=== PATIENT | male | born 1945 | race Caucasian/White ===

== ENCOUNTER 2020-12-31 07:05 | Day surgery (SDC) | payer MEDICARE, OTHER ==
[~2020-12-31] VITALS: Ht 175.3 cm; Wt 81.6 kg
[~2020-12-31 07:05] MED LIST: ALPHA LIPOIC A200 MG PO; ASPIRIN LOW DOS81 M1 PO; B COMPLE2 PO; B-12250 MCG OR; BACTRIM DS1 TAB PO; CIPRO500 MG PO; D31000 UNIT OR; FISH OIL1200 M1 PO; GABAPENTIN300 MG PO; Q-SORB CO Q-10200 MG PO; RAPAFLO8 MG OR; SUPER BETA PROSTATE PO; ULTRAM50 M1 PO; VITAMIN C500 M1 PO; VITAMIN D31000 UNI1 PO
[2020-12-31 09:02] VITALS: BP 147/80
== END 2020-12-31 09:30 | disposition home or self-care (01) ==
LOC: ENDO 07:05 → ORM 08:00 → ENDO 09:30 → ORM 10:30
PROVIDERS: ATTEND Surgery
PROC: 0DBH8ZX Excision of Cecum, Via Natural or Artificial Opening Endoscopic, Diagnostic (ICD-10-PCS; principal; 2020-12-31)
PROC: 0DBL8ZX Excision of Transverse Colon, Via Natural or Artificial Opening Endoscopic, Diagnostic (ICD-10-PCS; 2020-12-31)
DX: Z12.11 Encounter for screening for malignant neoplasm of colon (principal); D12.0 Benign neoplasm of cecum; D12.3 Benign neoplasm of transverse colon; K57.30 Diverticulosis of large intestine without perforation or abscess without bleeding; K64.8 Other hemorrhoids; Q43.9 Congenital malformation of intestine, unspecified; G62.9 Polyneuropathy, unspecified; Z86.010 Personal history of colon polyps

== ENCOUNTER 2022-04-26 15:41 | Inpatient (IN) | payer MEDICARE, OTHER ==
[~2022-04-26] VITALS: Ht 175.3 cm; Wt 80.0 kg
--- NOTE | 2022-04-26 16:19 | NUR ---
PT IN BED WITH FAMILY AT BEDSIDE. IV ACCESS OBTAINED IN FIRST ATTEMPT BY THIS GEOGRAPHY DEPARTMENT CHAIR. LABS SENT. BLOOD CULTURES X 2 OBTAINED. ME AWARE AND INFORMED OF PT CONDIION. WILL CONTINUE TO MONITOR.
[2022-04-26 16:38] LABS: HEMATOCRIT 48.4 % (39.0-50.0); HEMOGLOBIN 16.5 g/dl (14.0-18.0); IMMATURE GRANULOCYTES 0.3 % (0.0-5.0); MEAN CELL VOLUME 95.5 fL CALC (80.0-100.0); MEAN CORPUSCULAR HGB 32.5 pG CALC (26.0-32.0); MEAN CORPUSCULAR HGB CONC 34.1 g/dL CAL (32.0-36.0); NEUT# 8.49 thou/uL (1.82-7.42); RED BLOOD COUNT 5.07 mill/uL (4.70-6.10); RED CELL DISTRI WIDTH 11.5 % (11.5-15.5)
[2022-04-26 16:48] LABS: ANION GAP 14 (6-22 (CALC)); BUN 8 mg/dL (8-23); BUN/CREATININE RATIO 12 (12-20 (CALC)); CARBON DIOXIDE 29 mmol/l (22-30); CHLORIDE 94 mmol/l (95-108); CREATININE 0.7 mg/dL (0.7-1.3); GFR FOR AFR.AMER. > 60 ML/MIN (>=60 (CALC)); GFR OTHER RACES > 60 ML/MIN (>=60 (CALC)); POTASSIUM 4.2 mmol/l (3.5-5.1); SGOT/AST 40 u/l (19-48); SODIUM 134 mmol/l (137-146); TOTAL PROTEIN 8.7 g/dL (6.3-8.2)
[2022-04-26 16:51] LABS: ALKALINE PHOSPHATASE 112 u/l (38-126); BILIRUBIN, TOTAL 0.4 mg/dL (0.0-1.4)
--- NOTE | 2022-04-26 19:50 | NUR ---
Report received from LEAD PERSON.
--- NOTE | 2022-04-26 19:50 | NUR ---
PT ADMITTED TO RM [id number], REPORT GIVEN TO JOSSELIN HUNTER. PT RESTING COMFORTABLY, NO COMPLAINTS AT THIS TIME; VSS, NAD.
[2022-04-26 20:30] VITALS: BP 163/85
--- NOTE | 2022-04-26 20:40 | NUR ---
77 y/o male patient received from ED with Dx: Cellulitis BLE. O/A to unit, pat awake, alert and cooperative. BLE swollen, red with multiple blebs and bullae and open blisters. Same weeping moderate amount serosanguinous drainage. Pt noted to have several other healed lesions over thighs and buttocks and hips. Sacrum with stage 2 pressure injuries surrounded by areas of redness. Order noted for air mattress. Charge nurse made aware. Will follow up. Pt oriented to room, environment and call system. Plan of care reviewed. Call thompson placed within reach. Will monitor.
[2022-04-26 20:43] VITALS: BP 114/73
[2022-04-26 20:46] VITALS: BP 163/85
[2022-04-26 21:14] LABS: ALBUMIN 4.1 g/dL (3.2-5.0); BILIRUBIN, TOTAL 0.4 mg/dL (0.0-1.4); TOTAL PROTEIN 8.7 g/dL (6.3-8.2)
--- NOTE | 2022-04-26 23:10 | NUR ---
Pt with c/opain to RLE. Medicated with tramadol 50mgs oi. Will reassess.
[2022-04-27 00:14] VITALS: BP 125/66
[2022-04-27 04:21] VITALS: BP 114/59
[2022-04-27 05:40] LABS: IMMATURE GRANULOCYTES 0.4 % (0.0-5.0); MEAN CELL VOLUME 96.6 fL CALC (80.0-100.0); MEAN CORPUSCULAR HGB 32.9 pG CALC (26.0-32.0); MEAN CORPUSCULAR HGB CONC 34.1 g/dL CAL (32.0-36.0); NEUT# 3.21 thou/uL (1.82-7.42); RED BLOOD COUNT 3.83 mill/uL (4.70-6.10); RED CELL DISTRI WIDTH 11.6 % (11.5-15.5)
[2022-04-27 05:57] LABS: HEMOGLOBIN 12.6 g/dl (14.0-18.0)
--- NOTE | 2022-04-27 06:03 | NUR ---
Pt appears to be resting. Resps even and unlaboured. No noted complaints at this time.
[2022-04-27 06:21] LABS: BUN 5 mg/dL (8-23); BUN/CREATININE RATIO 10 (12-20 (CALC)); CARBON DIOXIDE 24 mmol/l (22-30); CREATININE 0.5 mg/dL (0.7-1.3); GFR FOR AFR.AMER. > 60 ML/MIN (>=60 (CALC)); GFR OTHER RACES > 60 ML/MIN (>=60 (CALC)); MAGNESIUM 2.2 mg/dL (1.6-2.3); POTASSIUM 3.4 mmol/l (3.5-5.1); SODIUM 138 mmol/l (137-146)
[2022-04-27 06:27] LABS: ANION GAP 10 (6-22 (CALC)); CHLORIDE 107 mmol/l (95-108)
[2022-04-27 07:02] VITALS: BP 107/57
--- NOTE | 2022-04-27 11:15 | NUR ---
[facility] SOUND TECH CALLED TO INFORM US THAT THEY ARE UNABLE TO PERFORM THE ULTRA SOUND THAT DR DREW ORDERED. DR DREW INFORMED AND STATED THAT THIS IS A NON-EMERGENT SITUATION, THAT PATIENT CAN DO OUTPATIENT SETTINGS. FORMING ACID DUMPER INFORMED AND SCRIPT WILL BE GIVEN UPON DISCHARGE.
[2022-04-27 12:13] VITALS: BP 117/64
[2022-04-27 16:54] VITALS: BP 119/62
[2022-04-27 19:00] VITALS: BP 109/51
--- NOTE | 2022-04-27 19:00 | NUR ---
Report received from AM RN. Pt appears to be asleep. Resps even and unlaboured. In no apparent distress. Will monitor.
[2022-04-28] VITALS (10 sets, daily range): BP systolic 117–149; BP diastolic 65–86
--- NOTE | 2022-04-28 06:22 | NUR ---
Pt awake, alert. No noted complaints.Safety precautions maintained.
[2022-04-28 08:22] LABS: BUN 4 mg/dL (8-23); BUN/CREATININE RATIO 5 (12-20 (CALC)); CARBON DIOXIDE 23 mmol/l (22-30); CHLORIDE 109 mmol/l (95-108); CREATININE 0.7 mg/dL (0.7-1.3); GFR FOR AFR.AMER. > 60 ML/MIN (>=60 (CALC)); GFR OTHER RACES > 60 ML/MIN (>=60 (CALC)); MAGNESIUM 2.3 mg/dL (1.6-2.3); SODIUM 139 mmol/l (137-146)
[2022-04-28 08:23] LABS: ANION GAP 12 (6-22 (CALC)); POTASSIUM 4.5 mmol/l (3.5-5.1)
--- NOTE | 2022-04-28 10:37 | NUR ---
S: PAU NIELSON is a 77 M who presents with cellulitis of right foot and sepsis. He has a history of neuropahy, osteoarthritis, colon polyp. All medications in patient's chart were reviewed. O: VS: BP 117/64 mmHg, P 63bpm, RR 18bpm,T 97.9f W 80Kg, HT 175.26cm, Scr= 1.0 ,CrCl= 70.0ml/min Vancomicyn trough level on 04/28/22 @ 0755: 13 A: Blood culture show no growth. Wound culture is pending. Vancomycin trough level is low compare to the therapeutic range. P: Patient is on Zosyn 3.375gm IV Q6H. Vancomycin ordered for pharmacy to dose. Continue Vancomycin 1gm IV Q12H. Vancomycin trough is drawn before dose on 04/29/2022 @ 1999. Vancomycin goal trough is between 15-20 mcg/ml. Pharmacy will follow and or advise on antibiotics use as needed.
--- NOTE | 2022-04-28 17:35 | NUR ---
CALLED [facility] REGARDING PLACEMENT OF AIR MATTRESS ON THIS PT. SPOKE TO JOSEPHINE WAS GIVEN CONFIRMATION NUMBER [id number].
--- NOTE | 2022-04-28 19:15 | NUR ---
Shift report done. Pt received in bed. Awake, alert. No apparent distress. No noted complaints. Safety precautions in place.
--- NOTE | 2022-04-29 03:09 | NUR ---
Pt appears to be asleep at intervals. No noted complaints. Resps even and unlaboured. Safety precautions in place.
[2022-04-29 04:21] VITALS: BP 134/67
[2022-04-29 06:22] LABS: ANION GAP 12 (6-22 (CALC)); BUN 4 mg/dL (8-23); BUN/CREATININE RATIO 6 (12-20 (CALC)); CARBON DIOXIDE 24 mmol/l (22-30); CHLORIDE 110 mmol/l (95-108); CREATININE 0.6 mg/dL (0.7-1.3); GFR FOR AFR.AMER. > 60 ML/MIN (>=60 (CALC)); GFR OTHER RACES > 60 ML/MIN (>=60 (CALC)); POTASSIUM 4.1 mmol/l (3.5-5.1); SODIUM 141 mmol/l (137-146)
[2022-04-29 06:36] VITALS: BP 130/71
[2022-04-29 11:27] VITALS: BP 130/75
[2022-04-29 16:30] VITALS: BP 160/86
[2022-04-29 18:53] VITALS: BP 145/79
[2022-04-30 00:14] VITALS: BP 145/78
[2022-04-30 03:58] VITALS: BP 126/69
[2022-04-30 06:14] VITALS: BP 136/76
[2022-04-30 14:30] VITALS: BP 133/76
[2022-04-30 19:08] VITALS: BP 121/75
[2022-05-01 00:08] VITALS: BP 126/68
[2022-05-01 04:36] VITALS: BP 128/67
[2022-05-01 06:42] VITALS: BP 135/68
[2022-05-01 06:53] LABS: HEMOGLOBIN 14.3 g/dl (14.0-18.0); IMMATURE GRANULOCYTES 0.3 % (0.0-5.0); MEAN CELL VOLUME 97.7 fL CALC (80.0-100.0); MEAN CORPUSCULAR HGB 32.3 pG CALC (26.0-32.0); NEUT# 4.4 thou/uL (1.82-7.42); RED BLOOD COUNT 4.43 mill/uL (4.70-6.10); RED CELL DISTRI WIDTH 11.8 % (11.5-15.5)
[2022-05-01 06:54] LABS: HEMATOCRIT 43.3 % (39.0-50.0)
[2022-05-01 06:59] LABS: ANION GAP 10 (6-22 (CALC)); BUN 7 mg/dL (8-23); BUN/CREATININE RATIO 9 (12-20 (CALC)); CHLORIDE 104 mmol/l (95-108); CREATININE 0.7 mg/dL (0.7-1.3); GFR FOR AFR.AMER. > 60 ML/MIN (>=60 (CALC)); GFR OTHER RACES > 60 ML/MIN (>=60 (CALC)); MAGNESIUM 2.3 mg/dL (1.6-2.3); SODIUM 139 mmol/l (137-146)
[2022-05-01 07:06] LABS: CARBON DIOXIDE 29 mmol/l (22-30)
[2022-05-01 15:14] VITALS: BP 120/79
[2022-05-01 20:00] VITALS: BP 110/63
[2022-05-02 00:20] VITALS: BP 107/67
[2022-05-02 03:23] VITALS: BP 113/80
[2022-05-02 05:41] LABS: HEMATOCRIT 43.9 % (39.0-50.0); HEMOGLOBIN 14.2 g/dl (14.0-18.0); IMMATURE GRANULOCYTES 0.3 % (0.0-5.0); MEAN CELL VOLUME 100.9 fL CALC (80.0-100.0); MEAN CORPUSCULAR HGB 32.6 pG CALC (26.0-32.0); MEAN CORPUSCULAR HGB CONC 32.3 g/dL CAL (32.0-36.0); NEUT# 4.11 thou/uL (1.82-7.42); RED BLOOD COUNT 4.35 mill/uL (4.70-6.10); RED CELL DISTRI WIDTH 11.9 % (11.5-15.5)
[2022-05-02 05:56] LABS: ANION GAP 12 (6-22 (CALC)); BUN 8 mg/dL (8-23); BUN/CREATININE RATIO 13 (12-20 (CALC)); CARBON DIOXIDE 26 mmol/l (22-30); CHLORIDE 105 mmol/l (95-108); CREATININE 0.7 mg/dL (0.7-1.3); GFR FOR AFR.AMER. > 60 ML/MIN (>=60 (CALC)); GFR OTHER RACES > 60 ML/MIN (>=60 (CALC)); MAGNESIUM 2.1 mg/dL (1.6-2.3); POTASSIUM 4.3 mmol/l (3.5-5.1); SODIUM 139 mmol/l (137-146)
[2022-05-02 06:24] VITALS: BP 135/76
[2022-05-02 10:01] VITALS: BP 114/61
[2022-05-02] MEDS ORDERED: LEVAQUIN750 M1 PO (10:40)
--- NOTE | 2022-05-02 13:25 | NUR ---
Attempted treatment, family in and nursing preparing pt for d/c.
--- NOTE | 2022-05-02 18:39 | NUR ---
CALLED [facility] REGARDING PICK OF AIR MATTRESS SPOKE TO MARCO ANTONIO WAS GIVEN CONFIRMATION NUMBER [id number].
== END 2022-05-02 13:50 | DRG 872 ==
LOC: ED 15:41 → ED-I 17:07 → ED 18:01 → MS2 18:02
PROVIDERS: Emergency Medicine; Internal Medicine; Nurse Practitioner; ADMIT Internal Medicine; ATTEND Internal Medicine
PROC: 0HBMXZZ Excision of Right Foot Skin, External Approach (ICD-10-PCS; principal; 2022-04-27)
DX: A41.9 Sepsis, unspecified organism (principal); L03.115 Cellulitis of right lower limb; E87.20 Acidosis, unspecified; R65.20 Severe sepsis without septic shock; R23.8 Other skin changes; G62.1 Alcoholic polyneuropathy; F10.20 Alcohol dependence, uncomplicated; L89.312 Pressure ulcer of right buttock, stage 2; S80.812A Abrasion, left lower leg, initial encounter; S80.811A Abrasion, right lower leg, initial encounter; F17.220 Nicotine dependence, chewing tobacco, uncomplicated; E87.6 Hypokalemia; B95.1 Streptococcus, group B, as the cause of diseases classified elsewhere; X58.XXXA Exposure to other specified factors, initial encounter; Y90.0 Blood alcohol level of less than 20 mg/100 ml; Z20.822 Contact with and (suspected) exposure to COVID-19
CPT/HCPCS: J1650; Q3014

== ENCOUNTER 2022-12-05 12:06 | Emergency (ER) | payer MEDICARE, OTHER ==
[~2022-12-05] VITALS: Ht 175.3 cm; Wt 79.0 kg
[~2022-12-05 12:06] MED LIST changes: +LEVAQUIN750 M1 PO
[2022-12-05 13:08] VITALS: BP 150/62
[2022-12-05] MEDS ORDERED: PERMETHRIN5 % EX (13:27)
[2022-12-05] MEDS ORDERED: ALL DAY10 MG PO (13:27)
[2022-12-05] MEDS ORDERED: OMNI-PAC300 MG PO (13:27)
[2022-12-05 13:46] VITALS: BP 150/62
== END 2022-12-05 13:59 | disposition home or self-care (01) ==
LOC: ED 12:06
DX: T78.40XA Allergy, unspecified, initial encounter (principal); L89.151 Pressure ulcer of sacral region, stage 1; G62.9 Polyneuropathy, unspecified; X58.XXXA Exposure to other specified factors, initial encounter

== ENCOUNTER 2024-01-24 11:25 | Inpatient (IN) | payer MEDICARE, OTHER ==
[2024-01-24] VITALS (21 sets, daily range): BP systolic 112–158; BP diastolic 60–100
[~2024-01-24] VITALS: Ht 175.3 cm; Wt 74.5 kg
[~2024-01-24 11:25] MED LIST changes: +ALL DAY10 MG PO; +OMNI-PAC300 MG PO; +PERMETHRIN5 % EX; -ULTRAM50 M1 PO; +ULTRAM50 MG PO
--- NOTE | 2024-01-24 12:40 | NUR ---
PT BROUGHT BACK TO ER ROOM 9 VIA WHEELCHAIR, PTS SPOUSE AT SIDE
[2024-01-24] MEDS ORDERED: SODIUM CHLORIDE 0.9% 1,000 ML IV ONE ×2 (13:35→19:40)
[2024-01-24 13:38] LABS: BASO% 0.1 % (0-3); EOS% 0.1 % (0-8); HEMATOCRIT 44.9 % (39.0-50.0); HEMOGLOBIN 14.7 g/dl (14.0-18.0); IMMATURE GRANULOCYTES 0.1 % (0.0-5.0); LYMPH% 5.4 % (15-41); MEAN CELL VOLUME 100.2 fL CALC (80.0-100.0); MEAN CORPUSCULAR HGB 32.8 pG CALC (26.0-32.0); MEAN CORPUSCULAR HGB CONC 32.7 g/dL CAL (32.0-36.0); MONO% 7.8 % (2-13); NEUT# 12.68 thou/uL (1.82-7.42); NEUT% 86.5 % (42-76); RED BLOOD COUNT 4.48 mill/uL (4.70-6.10); RED CELL DISTRI WIDTH 11.7 % (11.5-15.5)
[2024-01-24 13:39] LABS: ALBUMIN 3.7 g/dL (3.2-5.0); BILIRUBIN, TOTAL 1.3 mg/dL (0.2-1.3); CREATININE 0.7 mg/dL (0.7-1.3); POTASSIUM 4.2 mmol/l (3.5-5.1); TOTAL PROTEIN 8.1 g/dL (6.3-8.2)
[2024-01-24 15:37] LABS: URINE BILIRUBIN - DIPSTICK Negative (NEGATIVE); URINE BLOOD DIPSTICK Trace-intact (NEGATIVE); URINE GLUCOSE - DIPSTICK Negative (NEGATIVE); URINE KETONE Negative (NEGATIVE); URINE PH 5.5 (4.5-8.0); URINE PROTEIN - DIPSTICK Trace mg/dL (NEG-TRACE); URINE SPECIFIC GRAVITY 1.015; URINE UROBILINOGEN - DIPSTICK 0.2 E.U./dL (0.2)
[2024-01-24 15:42] LABS: URINE COLOR Yellow; URINE LEUK ESTERASE Large (NEGATIVE); URINE NITRITE - DIPSTICK Positive (Negative)
[2024-01-24 15:54] LABS: URINE BACTERIA MANY hpf; URINE WBC 50-100 WBC/hpf (0-5)
[2024-01-24] MEDS ORDERED: VANCOMYCIN HCL 1 GM in SODIUM CHLORIDE 0.9% 250 ML IV ONE (17:20)
--- NOTE | 2024-01-24 19:00 | NUR ---
REPORT RECIEVED FROM JOSSELIN GUILLORY AT THIS TIME, PT ABX RUNNING AT THIS TIME, WARM BLANKET PROVIDED PER REQUEST, RADIOLOGY NOTIFIED OF CONTINUED WAIT TIME FOR CT SCAN, PT/FAMILY UPDATED ON WAIT TIMES, VOICES UNDERSTANDING WITH NO FURTHER QUESTIONS OR CONCERNS AT THIS TIME.
--- NOTE | 2024-01-24 19:24 | NUR ---
PT UPDATED ON CONTINUED WAIT TIME, AWAITING FOR CT RESULTS AND ALL FURTHER ORDERS. PT ABX RUNNING. PT VERBALIZES UNDERSTANDING WITH NO FURTHER QUESTIONS/CONCERNS. WARM BLANKET APPLIED TO PT, VSS, NAD NOTED, CALL LIGHT WITHIN REACH. PT VERBALIZES NO FURTHER NEEDS AT THIS TIME.
[2024-01-24] MEDS ORDERED: PIPERACILLIN Sodium-Tazobactam 3.375 GM in SODIUM CHLORIDE 0.9% 100 ML IV ONE (19:40)
--- NOTE | 2024-01-24 19:40 | NUR ---
PT NOTED WITH 400 ML OF DARK CLOUDY VONDA URINE AT THIS TIME, URINE PRESENTS WITH SEVERE FOUL ODOR AT THIS TIME, PT UPDATED ON CONTINUOUS POC AT THIS TIME AND PLAN FOR ADMISSION, PT VERBALIZES UNABLE TO RECALL MED LIST AT THIS TIME, CONSULT APPLIED, AWAITING ALL FURTHER RESUKTS/ORDERS.
[2024-01-24] MEDS ORDERED: MAGNESIUM HYDROXIDE 30 ML UDC PO PRN (19:45)
[2024-01-24] MEDS ORDERED: SODIUM CHLORIDE 0.9% 1,000 ML IV PRN (19:45)
[2024-01-24] MEDS ORDERED: ACETAMINOPHEN 325 MG/TAB PO PRN (19:45)
--- NOTE | 2024-01-24 20:48 | NUR ---
CALLED AND GAVE REPORT TO TAYO SHRESTHA AT THIS TIME.
[2024-01-24] MEDS ORDERED: ENOXAPARIN SODIUM 40 MG/0.4 ML SYR SC SCH (21:00)
--- NOTE | 2024-01-24 21:45 | NUR ---
PT TRANSPORTED TO [facility] BY ADDITIONAL STAFF AT THIS TIME, PT VOICES APPRECIATION OF CARE AT THIS TIME, NAD NOTED, VSS.
[2024-01-24] MEDS ORDERED: LORazepam 2 MG/ML IV PRN (22:15)
[2024-01-24] MEDS ORDERED: MULTIPLE VITAMIN 10 ML,THIAMINE HCL 100 MG in DEXTROSE 5% / 0.9% NACL 1,000 ML IV ONE (22:15)
[2024-01-24] MEDS ORDERED: chlordiazePOXIDE HCL 25 MG CAP PO PRN (22:15)
[2024-01-24] MEDS ORDERED: MORPHINE SULFATE 4 MG/ML VIAL IV PRN (22:20)
--- NOTE | 2024-01-24 23:13 | NUR ---
COVID SWAB OBTAINED, SENT TO LAB, RYLAN INSTRUCTED NPO AFTER MIDNIGHT.
--- NOTE | 2024-01-24 23:46 | NUR ---
RECEIVED REPORT FROM ED NURSE RYLAN CHACON TRANSPORTED VIA BED, PATIENT STATED NON AMBULATORY AND USES BUGGY AT HOME FOR TRANSFER, PATIENT ARRIVED MS UNIT AT 2156, ALERT ORIENTED ADMISSION ASSESSMENT COMPLETED, PATIENT EDUCATED ON DIET NPO AFTER MIDNIGHT, PATIENT PLACED ON PUREWICK, PATIENT ORIENTED TO ROOM AND CALL LIGHT SYSTEM.
[2024-01-25] VITALS (10 sets, daily range): BP systolic 103–131; BP diastolic 49–71
[2024-01-25] MEDS ORDERED: PIPERACILLIN Sodium-Tazobactam 3.375 GM in SODIUM CHLORIDE 0.9% 100 ML IV SCH
[2024-01-25] MEDS ORDERED: VANCOMYCIN HCL 1 GM/VIAL IV ONE ×2 (04:19→04:22)
--- NOTE | 2024-01-25 04:57 | NUR ---
PATIENT RESTING IN BED, PUEWICK IN PLACED DRAINED 350CC VONDA COLORED URINE. PATIENT NOT IN DISTRESS, REMAINS ON NPO, BED ALARM IN PLACED.
[2024-01-25] MEDS ORDERED: VANCOMYCIN HCL 1 GM in SODIUM CHLORIDE 0.9% 250 ML IV SCH (05:00)
[2024-01-25 05:54] LABS: BASO% 0.2 % (0-3); EOS% 1.2 % (0-8); HEMATOCRIT 40.1 % (39.0-50.0); HEMOGLOBIN 13.3 g/dl (14.0-18.0); IMMATURE GRANULOCYTES 0.3 % (0.0-5.0); LYMPH% 8.6 % (15-41); MEAN CELL VOLUME 100.8 fL CALC (80.0-100.0); MEAN CORPUSCULAR HGB 33.4 pG CALC (26.0-32.0); MEAN CORPUSCULAR HGB CONC 33.2 g/dL CAL (32.0-36.0); MONO% 9.7 % (2-13); NEUT# 7.9 thou/uL (1.82-7.42); RED BLOOD COUNT 3.98 mill/uL (4.70-6.10); RED CELL DISTRI WIDTH 11.9 % (11.5-15.5)
[2024-01-25 06:05] LABS: BILIRUBIN, TOTAL 0.8 mg/dL (0.2-1.3); CREATININE 0.6 mg/dL (0.7-1.3); MAGNESIUM 1.9 mg/dL (1.6-2.3); POTASSIUM 3.9 mmol/l (3.5-5.1); TOTAL PROTEIN 6.5 g/dL (6.3-8.2)
[2024-01-25 06:07] LABS: ALBUMIN 2.7 g/dL (3.2-5.0)
--- NOTE | 2024-01-25 07:42 | NUR ---
PATEINT A/O X3; ROOM AIR; BREATHING UNLABORED AND EVEN; DENIED ANY PAIN; DENIED ANY N/D/V AT THIS TIME; DENIED NEEDING ANYTHING; PATIENT AWARE OF NPO STATUS; IV SITE CLEAN AND INTACT RUNNING WITH NS@100; CALL LIGHT WITHIN REACH,VERABLIZED UNDERSTANDING ON HOW TO USE, PERSONAL ITEMS WITHIN REACH, BED IN LOWEST POSTION
[2024-01-25] MEDS ORDERED: MULTIPLE VITAMIN 10 ML,THIAMINE HCL 100 MG in DEXTROSE 5% / 0.9% NACL 1,000 ML IV SCH (08:00)
[2024-01-25] MEDS ORDERED: TAMSULOSIN HCL 0.4 MG CAP PO SCH (08:00)
[2024-01-25] MEDS ORDERED: SODIUM CHLORIDE 20 ML/VIAL SDV ONE (08:21)
[2024-01-25] MEDS ORDERED: SODIUM CHLORIDE 1,000 ML BTL IR ONE (08:24)
[2024-01-25] MEDS ORDERED: BUPIVACAINE 133 MG/10 ML VIAL IJ ONE (08:24)
[2024-01-25] MEDS ORDERED: STERILE WATER FOR IRRIGATION 1,000 ML BTL IR ONE (08:24)
--- NOTE | 2024-01-25 08:40 | NUR ---
PATIENT WENT TO OR
[2024-01-25] MEDS ORDERED: LACTATED RINGER'S 1,000 ML IV ONE (08:42)
[2024-01-25] MEDS ORDERED: FAMOTIDINE 10MG/ML 2ML SDV IV ONE (08:48)
--- NOTE | 2024-01-25 09:32 | NUR ---
S: PAU NIELSON is a 78 M who presents with perirectal abscess and UTI. He has a history of neuropathy, OA, colonic polyp, and alcohol abuse. All medications in patient's chart were reviewed. O: VS: BP 140/70, P 73, RR 14, T 98.3 W 74.5 kg, HT 69 in, Scr=0.6, CrCl= 64.2 ml/min A: Blood culture is pending. Urine culture is pending. P: Patient is on Zosyn 3.375 g IV q6h. Vancomycin ordered for pharmacy to dose. Start Vancomycin 750 mg IV Q12H. Vancomycin trough is drawn before the 4th dose on 01/25@0730. Vancomycin goal trough is between 10-15 mcg/ml. Pharmacy will follow and or advise on antibiotics use as needed.
[2024-01-25] MEDS ORDERED: HYDROmorphone HCL 2 MG/AMP IV PRN (09:45)
[2024-01-25] MEDS ORDERED: oxyCODONE 5MG/ ACETAMINOPHEN 325MG TAB PO PRN (09:45)
[2024-01-25] MEDS ORDERED: SODIUM CHLORIDE 0.9% 1,000 ML IV ONE (09:53)
--- NOTE | 2024-01-25 10:28 | NUR ---
PATIENT ARRIVED FROM O; VITAL STABLE; AWAITING NEW ORDERS; SCD ON LEGS; ROOM AIR; BREATHING UNLABORED AND EVEN; DENIED ANY PAIN; NEW PICTURE TOOK AT [facility]; Q2 TURN TO PREVENT BED SORES; NEW PICTURES TOKEN OF BUTTCOCKS; I/S NEXT TO BED; IV SITE IN [facility] CLEAN AND INATCT RUNING WITH NS @100; CALL LIGHT WITHIN REACH,VERBALIZED UNDERSTANDING ON HOW TO USE, PERSONAL ITEMS WITHIN REACH, BED IN LOWEST POSTION
[2024-01-25] MEDS ORDERED: LIDOCAINE HCL 2% 2ML SDV IV ONE (10:29)
[2024-01-25] MEDS ORDERED: SUCCINYLCHOLINE CHLORIDE 20 MG/ML 10ML VIAL IV ONE (10:29)
[2024-01-25] MEDS ORDERED: ePHEDrine SULFATE 50 MG/ML AMP IV ONE (10:29)
[2024-01-25] MEDS ORDERED: PROPOFOL 200 MG/20 ML VIAL IV ONE (10:29)
--- NOTE | 2024-01-25 12:50 | NUR ---
PATEINT A/O X3; ROOM AIR; BREATHING UNLABORED AND EVEN; DENIED NEEDING ANYTHING; DENIED ANY N/D/V AT THIS TIME; DENIED AN PAIN; IV SITE CLEAN AND INTCACT,RUNNIN WITH BANANA BAG; PATIENT FAMILY IN ROOM WITH PATINET; REPOSTIONED ON LEFT SIDE TO STAY OFF BUTTOCKS; WAITING FOR ZOSYN FROM PHARMACY;MEDICATION REVIWED; CALL LIGHT WITHIN REACH,VERBALIZED UNDERSTANDING ON HOW TO USE, PERSONAL ITEMS WITHIN REACH, BED IN LOWEST POSTION
[2024-01-25] MEDS ORDERED: ONDANSETRON HCl 4 MG/2 ML SDV IV PRN (15:35)
--- NOTE | 2024-01-25 16:06 | NUR ---
PATIENT A/O X3; ROOM AIR; BREATHING UNLABORED AND EVEN; DENIED ANY PAIN; DENIED ANY DIARRHEA; VOMITED ON FLOOR AND BED, CALLED DR. SLATER REGARDING GETTING ZOFRAN 4MG VIA IV; WRITTEN CONSENT FOR ORDER; FAXED TO PHARMACY; NEW IV SITE IN RIGHT WRIST RUNNING WITH BANANA BAG @125; MEDICATION REVIWED; CALL LIGHT WITHIN REACH, VERBALIZED UNDERSTANDING ON HOW TO USE, PERSONAL ITEMS WITHIN REACH, BED IN LOWEST POSTION; BED ALARM ACTIVATED
[2024-01-25] MEDS ORDERED: HALOPERIDOL LACTATE 5 MG/ML SDV IV PRN (16:30)
[2024-01-25] MEDS ORDERED: VANCOMYCIN HCL 750 MG in SODIUM CHLORIDE 0.9% 235 ML IV SCH (20:00)
--- NOTE | 2024-01-25 20:34 | NUR ---
PATIENT CONFUSED, GETTING AGITATED. PULL PUREWICK, TRYING TO GET UP, STATING HE NEEDS TO GET TO HIS BUGGY, UNABLE TO REDIRECT. PRN HALDOL GIVEN.
--- NOTE | 2024-01-25 22:00 | NUR ---
PATIENT CONTINUOUSLY TRING TO PULL HIS NEW PUREWICK AND URINE GOES TO HIS DRESSING PATIENT S/P I&D PERINEAL ABSCESS. DR. WEBBER MADE AWARE NEW ORDER FOR A WHITFIELD CATHETER. DR SLATER ALSO MADE AWARE NEW ORDER TO GET URINE SAMPLE, SENT TO LAB.
[2024-01-25 22:55] LABS: URINE BILIRUBIN - DIPSTICK Negative (NEGATIVE); URINE BLOOD DIPSTICK Trace-lysed (NEGATIVE); URINE GLUCOSE - DIPSTICK Negative (NEGATIVE); URINE KETONE Negative (NEGATIVE); URINE PH 5.5 (4.5-8.0); URINE PROTEIN - DIPSTICK Negative (NEG-TRACE); URINE SPECIFIC GRAVITY 1.015
[2024-01-25 23:04] LABS: URINE COLOR Yellow
[2024-01-25 23:05] LABS: URINE LEUK ESTERASE Moderate (NEGATIVE); URINE NITRITE - DIPSTICK Negative (Negative)
[2024-01-25 23:07] LABS: URINE WBC 20-50 WBC/hpf (0-5)
[2024-01-25 23:08] LABS: URINE BACTERIA MODERATE hpf; URINE EPITHELIAL CELLS FEW EPI/hpf (0-FEW)
--- NOTE | 2024-01-26 | NUR ---
PATINET RESTING IN BED, EYES CSLOED, BREATHING EVEN UNALABORED, BED ALARM INPLACED.
[2024-01-26 03:58] VITALS: BP 117/61
[2024-01-26 04:11] VITALS: BP 117/61
--- NOTE | 2024-01-26 04:48 | NUR ---
PATIENT RESTING IN BED, EYES CLOSED, VBREATHING EVEN UNALBORED. CALL LIGHT IN REACHED, BED ALARM IN PLACED.
[2024-01-26 05:00] LABS: BASO% 0.5 % (0-3); EOS% 5.8 % (0-8); HEMOGLOBIN 11.8 g/dl (14.0-18.0); IMMATURE GRANULOCYTES 0.2 % (0.0-5.0); LYMPH% 19.9 % (15-41); MEAN CELL VOLUME 100.3 fL CALC (80.0-100.0); MEAN CORPUSCULAR HGB CONC 31.9 g/dL CAL (32.0-36.0); MONO% 11.2 % (2-13); NEUT# 2.67 thou/uL (1.82-7.42); NEUT% 62.4 % (42-76); RED BLOOD COUNT 3.69 mill/uL (4.70-6.10); RED CELL DISTRI WIDTH 11.9 % (11.5-15.5)
[2024-01-26 05:13] LABS: ALBUMIN 2.5 g/dL (3.2-5.0); CREATININE 0.6 mg/dL (0.7-1.3); MAGNESIUM 2.1 mg/dL (1.6-2.3); POTASSIUM 3.5 mmol/l (3.5-5.1); TOTAL PROTEIN 5.9 g/dL (6.3-8.2)
[2024-01-26 05:25] LABS: BILIRUBIN, TOTAL 0.4 mg/dL (0.2-1.3)
[2024-01-26 06:57] VITALS: BP 125/68
[2024-01-26] MEDS ORDERED: VANCOMYCIN HCL 1 GM in SODIUM CHLORIDE 0.9% 250 ML IV SCH (08:00)
--- NOTE | 2024-01-26 08:11 | NUR ---
PATIENT A/O X3; ROOM AIR; BREATHING UNLABORED AND EVEN; DENIED ANY N/D/V AT THIS TIME; PAIN LEVEL 5/10, MEDICATED; IV SITE CLEAN AND INATCT ON RIGHT WRIST RUNNING WITH NS @100; TELE LEADS ARE ATTACHED AND WORKING WITH NO ISSUES; WHITFIELD BAG RUNNING WITH NO ISSUES WITH CLEAR YELLOW URINE; NO S/S OF DISTRESS; ENCOURAGED PATIENT TO EAT BREAKFAST, SITTING IN SEMI WALLACE POSTION IN BED; CALL LIGHT WITHIN REACH,VERBALIZED UDNERSTANDING ON HOW TO USE, PERSOAL ITEMS WITHIN REACH, BED IN LOWEST POSTIO; BED ALARM ACIVATED
--- NOTE | 2024-01-26 12:55 | NUR ---
PATEINT A/O X3; ROOM AIR; BREATHING UNLABORED AND EVEN; DENIED ANY PAIN; DENID NEEDING ANYTHING; DENIED ANY N/V/D AT THIS TIME; WOUND CARE COMPLETED WITH NO ISSUES; IV SITE IN RIGHT WRIST WITH NO ISSUES RUNNING WITH NS @100; FAMILY IN ROOM WITH PATIENT; NO S/S OF DISTRESS AT THIS TIME; BED LINEN WAS CHANGED; WHITFIELD WAS CLEAN AND INACT WITH CLEAR YELLOW URINE OUTPUT, 600 EMPTIED FROM WHITFIELD BAG; CALL LIGHT WITHIN REACH, VERBALIZED UNDERSTANDING ON HOW TO USE, PERSONAL ITEMS WITHIN REACH, BED IN LOWEST POSTION
--- NOTE | 2024-01-26 12:55 | NUR ---
WOUND CARE COMPLETED; PACKED WITH THREE FLUFF GAUZE AND COVERED WITH ABD PADS; DRAINAGE OF BLOOD; NO S/S OF INFECTION AT THIS TIME; PATIENT TOLERATED WOUND CARE GOOD;
--- NOTE | 2024-01-26 16:21 | NUR ---
PATEINT A/O X2; ROOM AIR; BREATHING UNLABORED AND EVEN; DENIED ANY PAIN; DENIED ANY N/V/D AT THIS TIME; NO S/S OF DISTRESS; IV SITE CLEAN AND INTACT ON RIGHT WRIST RUNNING WITH NS @100; TELE LEADS ARE ATTACHED WITH NO ISSUES; MEDICATION REVIWED; WHITFIELD WORKING WITH NO ISSUES; DENIED ANY PAIN ON BUTTOCK; CALL LIGHT WITHIN REACH, VERBALIZED UNDERSTANDING ON HOW TO USE, PERSONAL ITEMS WITHIN REACH, BED IN LWOEST POSTION
[2024-01-26 18:55] VITALS: BP 134/74
[2024-01-27 04:27] VITALS: BP 135/68
[2024-01-27 06:22] LABS: BASO% 0.9 % (0-3); EOS% 7.9 % (0-8); HEMATOCRIT 35.8 % (39.0-50.0); LYMPH% 19.1 % (15-41); MEAN CELL VOLUME 99.7 fL CALC (80.0-100.0); MEAN CORPUSCULAR HGB 33.4 pG CALC (26.0-32.0); MEAN CORPUSCULAR HGB CONC 33.5 g/dL CAL (32.0-36.0); MONO% 8.6 % (2-13); NEUT# 2.9 thou/uL (1.82-7.42); NEUT% 63.5 % (42-76); RED BLOOD COUNT 3.59 mill/uL (4.70-6.10)
[2024-01-27 06:33] LABS: ALBUMIN 2.6 g/dL (3.2-5.0); BILIRUBIN, TOTAL 0.4 mg/dL (0.2-1.3); CREATININE 0.7 mg/dL (0.7-1.3); MAGNESIUM 1.9 mg/dL (1.6-2.3); POTASSIUM 3.5 mmol/l (3.5-5.1); TOTAL PROTEIN 6.1 g/dL (6.3-8.2)
[2024-01-27 06:52] VITALS: BP 125/78
--- NOTE | 2024-01-27 08:01 | NUR ---
Pt resting in bed, eating breakfast. Dsg on buttcoks without drainage. No distress, no complaints.
[2024-01-27] MEDS ORDERED: cefTRIAXone SODIUM 2 GM in SODIUM CHLORIDE 0.9% 100 ML IV SCH (09:00)
[2024-01-27 10:58] VITALS: BP 142/71
--- NOTE | 2024-01-27 12:00 | NUR ---
PT RESTING IN BED, FAMILY AT BEDSIDE. PT TRANSFERRED TO BSC COMMODE WITH ONE ASSIST, NO BM AT THIS TIME.
[2024-01-27 14:35] VITALS: BP 152/74
[2024-01-27 19:22] VITALS: BP 150/83
--- NOTE | 2024-01-28 04:00 | NUR ---
CONFUSED, PULLING EVERYTHING OFF, NOAH 13 MEDICATED WITH IV ATIVAN.
[2024-01-28 05:44] LABS: BASO% 0.6 % (0-3); EOS% 6.5 % (0-8); HEMATOCRIT 40.1 % (39.0-50.0); HEMOGLOBIN 12.7 g/dl (14.0-18.0); IMMATURE GRANULOCYTES 0.2 % (0.0-5.0); LYMPH% 17.2 % (15-41); MEAN CELL VOLUME 104.2 fL CALC (80.0-100.0); MEAN CORPUSCULAR HGB CONC 31.7 g/dL CAL (32.0-36.0); NEUT# 3.56 thou/uL (1.82-7.42); NEUT% 66.5 % (42-76); RED BLOOD COUNT 3.85 mill/uL (4.70-6.10)
[2024-01-28 05:52] LABS: ALBUMIN 2.7 g/dL (3.2-5.0); BILIRUBIN, TOTAL 0.5 mg/dL (0.2-1.3); CREATININE 0.6 mg/dL (0.7-1.3); MAGNESIUM 1.9 mg/dL (1.6-2.3); POTASSIUM 3.5 mmol/l (3.5-5.1); TOTAL PROTEIN 6.4 g/dL (6.3-8.2)
[2024-01-28 07:01] VITALS: BP 165/91
--- NOTE | 2024-01-28 08:00 | NUR ---
Pt resting in bed, watching TV. Pt is unable to determine date. Drniking water. No complaints, no distress.
[2024-01-28] MEDS ORDERED: Polyethylene Glycol 3350 17 GM/PKT PO SCH (09:00)
[2024-01-28 10:16] VITALS: BP 157/80
[2024-01-28] MEDS ORDERED: cefTRIAXone SODIUM 2 GM in SODIUM CHLORIDE 0.9% 100 ML IV SCH (12:00)
[2024-01-28] MEDS ORDERED: CEFTRIAXONE SODIUM IV SCH (12:00)
[2024-01-28] MEDS ORDERED: SODIUM CHLORIDE 0.9% IV SCH (12:00)
--- NOTE | 2024-01-28 12:00 | NUR ---
PATIENT LAYING IN BED WITH EYES CLOSED BUT EASILY AROUSED WITH TACTILE STIMULI. FAMILY AT BEDSIDE. NO SIGNS/SYMPTOMS OF PAIN OR DISTRESSED NOTED. WILL CONTINUE TO MONITOR.
[2024-01-28 15:06] VITALS: BP 153/75
--- NOTE | 2024-01-28 16:00 | NUR ---
PT RESTING IN BED. VISITORS AT BEDSIDE OFFERING HIM SNACKS. PT TOLERATING SNACKS.
[2024-01-28 19:01] VITALS: BP 140/68
[2024-01-28 19:29] VITALS: BP 140/68
--- NOTE | 2024-01-28 20:00 | NUR ---
BEDSIDE SHIFT REPORT COMPLETED. PATIENT RESTLESS FIGITING. CIWA PROTOCAL IN PLACE
--- NOTE | 2024-01-29 | NUR ---
PATIENT CONTINUOUSLY TRING TO PULL HIS PUREWIK. YELLING OUT FOR MAMA. CONFUSED. MEDICATED WITH ATIVAN FOR AGITATION AND DILAUDID FOR C/O PAIN.
[2024-01-29 04:18] VITALS: BP 158/85
[2024-01-29 05:13] VITALS: BP 158/85
[2024-01-29 05:13] LABS: ALBUMIN 2.9 g/dL (3.2-5.0); BILIRUBIN, TOTAL 0.5 mg/dL (0.2-1.3); CREATININE 0.6 mg/dL (0.7-1.3); MAGNESIUM 1.9 mg/dL (1.6-2.3); TOTAL PROTEIN 6.9 g/dL (6.3-8.2)
[2024-01-29 05:14] LABS: BASO% 0.4 % (0-3); EOS% 6.1 % (0-8); HEMATOCRIT 41.6 % (39.0-50.0); HEMOGLOBIN 13.7 g/dl (14.0-18.0); IMMATURE GRANULOCYTES 0.1 % (0.0-5.0); LYMPH% 16.8 % (15-41); MEAN CELL VOLUME 99.8 fL CALC (80.0-100.0); MEAN CORPUSCULAR HGB 32.9 pG CALC (26.0-32.0); MEAN CORPUSCULAR HGB CONC 32.9 g/dL CAL (32.0-36.0); MONO% 7.9 % (2-13); NEUT# 4.68 thou/uL (1.82-7.42); NEUT% 68.7 % (42-76); POTASSIUM 3.6 mmol/l (3.5-5.1); RED BLOOD COUNT 4.17 mill/uL (4.70-6.10); RED CELL DISTRI WIDTH 11.9 % (11.5-15.5)
--- NOTE | 2024-01-29 06:00 | NUR ---
MEDICATED WITH HALDOL PRN FOR AGITATION AND SCREAMING OUT MAMA. PULLING AT MEDICAL DEVICES.
--- NOTE | 2024-01-29 06:58 | NUR ---
PATIENT LYING IN BED WITH EYES CLOSED BUT EASILY AROUSED. PATIENT A&OX1 TO SELF ONLY. PATIENT ABDOMEN SOFT AND NONTENDER, RESPIRATIONS EVEN AND UNLABORED. NO SIGNS OR SYMPTOMS OF PAIN OR DISTRESSED NOTED. WILL CONTINUE TO MONITOR.
[2024-01-29 07:59] VITALS: BP 171/85
[2024-01-29] MEDS ORDERED: TAMSULOSIN0.4 MG PO (08:15)
[2024-01-29] MEDS ORDERED: PERCOCET 5/325M1 TAB PO (08:22)
[2024-01-29] MEDS ORDERED: BACTRIM DS1 TAB PO (08:23)
[2024-01-29] MEDS ORDERED: NICOTINE TRANSDERMAL 21 MG/PATCH TD SCH (09:00)
--- NOTE | 2024-01-29 11:37 | NUR ---
PATIENT LYING IN BED. NO SIGNS OR SYMPTOMS OF PAIN OR DISTRESS NOTED. WILL CONTINUE TO MONITOR.
--- NOTE | 2024-01-29 13:43 | NUR ---
PATIENT WILL BE DISCHARGE TO [facility]. THIS FAMILY RESOURCE SPECIALIST CALLED REPORT TO NURSE AHUJA AT THE FACILITY ([facility]).
--- NOTE | 2024-01-29 14:56 | NUR ---
Discharge instructions given. Patient verbalizes understanding of same. Discharged in stable condition via Wheelchair to [facility] with staff. All belongings sent with pt. PATIENT IV REMOVED.
== END 2024-01-29 14:56 | DRG 394 ==
LOC: ED 11:25 → ED-I 19:34 → ED 19:58 → MS2 19:59
PROVIDERS: Family Medicine; Nurse Practitioner Family; ADMIT Student in an Organized Health Care Education/Training Program; ATTEND Student in an Organized Health Care Education/Training Program
PROC: 0D9P3ZZ Drainage of Rectum, Percutaneous Approach (ICD-10-PCS; principal; 2024-01-25)
DX: K61.1 Rectal abscess (principal); F10.239 Alcohol dependence with withdrawal, unspecified; N39.0 Urinary tract infection, site not specified; B96.4 Proteus (mirabilis) (morganii) as the cause of diseases classified elsewhere; B96.20 Unspecified Escherichia coli [E. coli] as the cause of diseases classified elsewhere; M19.90 Unspecified osteoarthritis, unspecified site; G62.9 Polyneuropathy, unspecified; F17.220 Nicotine dependence, chewing tobacco, uncomplicated; Z86.010 Personal history of colon polyps; Z20.822 Contact with and (suspected) exposure to COVID-19
CPT/HCPCS: C9290; J1650; J2060; J3370; Q9967